=== PATIENT | male | born 1955 | race Caucasian/White ===

== ENCOUNTER 2021-01-07 09:45 | Emergency (ER) | payer OTHER ==
[~2021-01-07] VITALS: Ht 170.2 cm; Wt 72.6 kg
[2021-01-07] MEDS ORDERED: HYDROCODON-ACE1 EA11 PO (09:59)
[2021-01-07] MEDS ORDERED: CRESTOR20 MG PO (10:00)
[2021-01-07] MEDS ORDERED: ZOFRAN4 MG PO (13:31)
[2021-01-07] MEDS ORDERED: FLOMAX0.4 MG PO (13:31)
[2021-01-07] MEDS ORDERED: HYDROCODON-ACE1 EA10 PO (13:31)
== END 2021-01-07 13:48 | disposition home or self-care (01) ==
LOC: ED 09:45
DX: N20.1 Calculus of ureter (principal)
CPT/HCPCS: 74176; 80053; 81001; 83690; 85025; 96374; 96375; 99284-25; J1885; J2270; J2405; J7030